=== PATIENT | female | born 1980 | race Caucasian/White ===

== ENCOUNTER → 2024-08-18 | Outpatient (CLI) | payer OTHER ==
--- NOTE | 2024-08-18 10:15 | XR ---
EXAMINATION TYPE: XR lumbar spine 2 or 3V DATE OF EXAM: 08/18/2024 10:08 AM CLINICAL INDICATION: Female, 44 years old with history of XRAY/M51.16,M54.16..LUMBAR SPINE; [facility] COMPARISON: MRI 08/26/2011 TECHNIQUE: XR lumbar spine 2 or 3V - Frontal, lateral and coned in L5-S1 lateral views of the spine. FINDINGS: No evidence of any acute osseous pathology. No evidence of loss of vertebral body height i s seen. There is normal alignment of the lumbar vertebral bodies. Scattered disc space narrowing. Mul tilevel marginal osteophyte formation throughout the visualized spine. There is facet joint arthropat hy throughout the spine. Scattered at least mild neural foraminal stenosis. Large osteophytes are see n in the right facet. No neural foraminal stenosis worse at L4-L5 and L5-S1 with at least moderate. IMPRESSION: 1. No acute fracture. 2. 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 [facility], , 08/18/2024 10:12 AM
== END | disposition home or self-care (01) ==
LOC: RADXRMAIN 09:42
PROVIDERS: ATTEND Family Medicine
CPT/HCPCS: 72100

== ENCOUNTER 2024-09-13 12:42 | Emergency (ER) | payer OTHER ==
[2024-09-13 12:55] VITALS: PULSE 71
[2024-09-13] MEDS: dexAMETHasone 4 MG TAB PO STA (13:23)
--- NOTE | 2024-09-13 13:49 | XR ---
EXAMINATION TYPE: XR chest 2V DATE OF EXAM: 09/13/2024 1:33 PM COMPARISON: None TECHNIQUE: XR chest 2V Frontal and lateral views of the chest. CLINICAL INDICATION:Female, 44 years old with history of cough; FINDINGS: Lungs/Pleura: There is no evidence of pleural effusion, focal consolidation, or pneumothorax. Pulmonary vascularity: Unremarkable. Heart/mediastinum: Cardiomediastinal silhouette is unremarkable. Musculoskeletal: No acute osseous pathology. IMPRESSION: No acute cardiopulmonary disease/process. [facility], , 09/13/2024 1:47 PM
--- NOTE | 2024-09-13 14:35 | ED ---
General Adult HPI - General Chief complaint: Upper Respiratory Infection Stated complaint: Congestion,Fever Time Seen by Provider: 09/13/24 13:10 Source: patient, RN notes reviewed, old records reviewed Mode of arrival: ambulatory Limitations: no limitations - History of Present Illness Initial comments: Patient is a 44-year-old female presents emergency department with upper respiratory symptoms. Is on day 2 or 3 of symptoms. Has positive COVID contact. Concerned she may have COVID. Patient does vape. Describes having productive cough, nasal congestion. Denies any other symptoms including denying nausea, vomiting, diarrhea. Vaccinated COVID. Presents for further evaluation at this time. - Related Data Home Medications Medication Instructions Recorded Confirmed ALPRAZolam [Xanax] 1 mg PO BID 04/10/14 04/27/14 Gabapentin [Neurontin] 600 mg PO TID 04/10/14 04/27/14 HYDROcodone/APAP 10-325MG [[place] 1 tab PO QID 04/10/14 04/27/14 10-325] buPROPion SR [Wellbutrin SR] 150 mg PO BID 04/10/14 04/27/14 Previous Rx's Medication Instructions Recorded ARIPiprazole [Abilify] 5 mg PO DAILY #30 tab 04/30/14 Albuterol Sulfate [Ventolin HFA] 2 puff INHALATION Q6H PRN #1 each 09/13/24 Allergies Allergy/AdvReac Type Severity Reaction Status Date / Time No Known Allergies Allergy Verified 09/13/24 12:54 Review of Systems ROS Statement: Those systems with pertinent positive or pertinent negative responses have been documented in the HPI. Review of Systems: CONST: Denies fever EYES: Denies blurry vision ENT: Endorses nasal congestion, cough C/V: Denies Chest pain RESP: Denies shortness of breath GI: Denies abdominal pain : Denies dysuria SKIN: Denies rash. MSK: Denies joint pain. NEURO: Denies headache ROS Other: All systems not noted in ROS Statement are negative. Past Medical History Past Medical History: No Reported History Additional Past Medical History / Comment(s): ogorophobia History of Any Multi-Drug Resistant Organisms: None Reported Past Surgical History: Adenoidectomy, Back Surgery, Tonsillectomy Additional Past Surgical History / Comment(s): pilonidal cyst. oral surgery Past Psychological History: ADD/ADHD, Anxiety, Depression Smoking Status: Vaper Past Alcohol Use History: Occasional General Exam - General Exam Comments Initial Comments: General: Appears in no acute distress. HEAD: Normal with no signs of head trauma. EYES: EOMI. ENT: Hearing grossly intact. Posterior oropharynx within acceptable limits. RESPIRATORY: No respiratory distress. No hypoxia. No respiratory distress. Clear breath sounds bilaterally. C/V: Regular rate and rhythm. S1 and S2 auscultated. ABD: Abdomen is nondistended. EXT: No obvious deformity. SKIN: No rashes or lesions observed on exposed skin. NEURO: Alert and oriented. Limitations: no limitations Course Vital Signs 09/13/24 09/13/24 12:52 13:01 Temperature 97.8 F Pulse Rate 71 Respiratory 20 18 Rate Blood Pressure 141/82 O2 Sat by Pulse 95 Oximetry Medical Decision Making - Medical Decision Making Was pt. sent in by a medical professional or institution (, PA, SALESPERSON FLYING SQUAD, urgent care, hospital, or fpc...) When possible be specific @ -No Did you speak to anyone other than the patient for history (EMS, parent, family, police, friend...)? What history was obtained from this source @ -No Did you review nursing and triage notes (agree or disagree)? Why? @ -I reviewed and agree with nursing and triage notes Were old charts reviewed (outside hosp., previous admission, EMS record, old EKG, old radiological studies, urgent care reports/EKG's, fpc records)? Report findings @ -No old charts were reviewed Differential Diagnosis (chest pain, altered mental status, abdominal pain women, abdominal pain men, vaginal bleeding, weakness, fever, dyspnea, syncope, headache, dizziness, GI bleed, back pain, seizure, CVA, palpatations, mental health, musculoskeletal)? @ -COVID, flu, RSV, pneumonia. This list is not all inclusive. EKG interpreted by me (3pts min.). @ -None done X-rays interpreted by me (1pt min.). @ -Chest x-ray reveals no obvious acute cardiopulmonary process. CT interpreted by me (1pt min.). @ -None done U/S interpreted by me (1pt. min.). @ -None done What testing was considered but not performed or refused? (CT, X-rays, U/S, labs)? Why? @ -None What meds were considered but not given or refused? Why? @ -None Did you discuss the management of the patient with other professionals (professionals i.e. , PA, SALESPERSON FLYING SQUAD, lab, RT, psych nurse, medical social consultant, ore grader, teacher, chemical instrumentation officer, adult protective caseworker)? Give summary @ -No Was smoking cessation discussed for >3mins.? @ -No Was critical care preformed (if so, how long)? @ -No Were there social determinants of health that impacted care today? How? (Homelessness, low income, unemployed, alcoholism, drug addiction, transportation, low edu. Level, literacy, decrease access to med. care, correction, rehab)? @ -No Was there de-escalation of care discussed even if they declined (Discuss DNR or withdrawal of care, Hospice)? DNR status @ -No What co-morbidities impacted this encounter? (DM, HTN, Smoking, COPD, CAD, Cancer, CVA, ARF, Chemo, Hep., AIDS, mental health diagnosis, sleep apnea, morbid obesity)? @ -None Was patient admitted / discharged? Hospital course, mention meds given and route, prescriptions, significant lab abnormalities, going to OR and other pertinent info. @ -Patient presents with URI symptoms. We will obtain viral swabs, chest x- ray. She was in agreement this plan. Empirically given a dose of Decadron. Vitals are within acceptable limits. Viral swabs negative. Chest x-ray unremarkable. Discussed with the patient. As she likely has a viral URI, does not require antibiotics at this time. She expressed understanding. Recommended [id number] medications for therapy and follow-up with her PCP. She was in agreement this plan. I will provide the patient with a prescription for albuterol inhaler. I instructed the patient to follow up with their PCP in the next 1-3 days.. I explained that the patient should return to the emergency department if they experience any worsening symptoms. Strict return precautions were discussed with the patient. The patient expressed understanding of these instructions. I answered all questions that the patient had. The patient was discharged home in good condition with their prescriptions and follow up information. Undiagnosed new problem with uncertain prognosis? @ -No Drug Therapy requiring intensive monitoring for toxicity (Heparin, Nitro, Insulin, Cardizem)? @ -No Were any procedures done? @ -No Diagnosis/symptom? @ -Viral URI Acute, or Chronic, or Acute on Chronic? @ -Acute Uncomplicated (without systemic symptoms) or Complicated (systemic symptoms)? @ -Uncomplicated Side effects of treatment? @ -No Exacerbation, Progression, or Severe Exacerbation? @ -No Poses a threat to life or bodily function? How? (Chest pain, [place], [place], pneumonia, PE, COPD, DKA, ARF, appy, cholecystitis, CVA, Diverticulitis, Homicidal, Suicidal, threat to staff... and all critical care pts) @ -Unlikely - Lab Data Lab Results 09/13/24 Range/Units 13:18 Influenza Type A (PCR) Not Detected (Not Detectd) Influenza Type B (PCR) Not Detected (Not Detectd) RSV (PCR) Not Detected (Not Detectd) SARS-CoV-2 (PCR) Not Detected (Not Detectd) Disposition Clinical Impression: Viral syndrome, URI (upper respiratory infection) Disposition: HOME SELF-CARE Condition: Good Instructions (If sedation given, give patient instructions): Upper Respiratory Infection (ED) Prescriptions: Albuterol Sulfate [Ventolin HFA] 2 puff INHALATION Q6H PRN #1 each PRN Reason: Dyspnea Is patient prescribed a controlled substance at d/c from ED?: No Referrals: Austen Bello MD [Primary Care Provider] - 1-2 days Time of Disposition: 14:30
[2024-09-13 14:42] VITALS: BP 135/80; RESP 16; TEMP 98.1
== END 2024-09-13 14:42 | disposition home or self-care (01) ==
LOC: EC 12:42
DX: J06.9 Acute upper respiratory infection, unspecified (principal); B34.9 Viral infection, unspecified; F17.290 Nicotine dependence, other tobacco product, uncomplicated
CPT/HCPCS: 87636; 71046; 99283; J8540

== ENCOUNTER 2024-11-26 16:31 | Emergency (ER) | payer OTHER ==
--- NOTE | 2024-11-26 16:37 | ED ---
ENT HPI - General Chief complaint: Dental/Oral Stated complaint: dental pain Time Seen by Provider: 11/26/24 16:36 Source: patient, RN notes reviewed, old records reviewed Mode of arrival: ambulatory Limitations: no limitations - History of Present Illness Initial comments: This is a 44-year-old female to ER with severe right rear molar right rear denta l pain swelling into the lower jaw. Severe pain with movement x 2 days. Patient has history of dental caries dental abscess with prior history of tooth extraction. No fevers no other complaints MD complaint: tooth pain -: days(s) (2) Location: tooth # (Right rear molar) Severity: severe Severity scale (1-10): 10 Quality: stabbing Consistency: constant, intermittent Worsens with: none Context- Dental: history of dental caries, poor dental care Associated Symptoms: toothache - Related Data Home Medications Medication Instructions Recorded Confirmed ALPRAZolam [Xanax] 1 mg PO BID 04/10/14 04/27/14 Gabapentin [Neurontin] 600 mg PO TID 04/10/14 04/27/14 HYDROcodone/APAP 10-325MG [[place] 1 tab PO QID 04/10/14 04/27/14 10-325] buPROPion SR [Wellbutrin SR] 150 mg PO BID 04/10/14 04/27/14 Previous Rx's Medication Instructions Recorded ARIPiprazole [Abilify] 5 mg PO DAILY #30 tab 04/30/14 Albuterol Sulfate [Ventolin HFA] 2 puff INHALATION Q6H PRN #1 each 09/13/24 Amoxic-Pot Clav 875-125Mg 1 tab PO Q12HR #20 tablet 11/26/24 [Augmentin 875-125] Allergies Allergy/AdvReac Type Severity Reaction Status Date / Time No Known Allergies Allergy Verified 11/26/24 16:34 Review of Systems ROS Statement: Those systems with pertinent positive or pertinent negative responses have been documented in the HPI. ROS Other: All systems not noted in ROS Statement are negative. Past Medical History Past Medical History: No Reported History Additional Past Medical History / Comment(s): ogorophobia History of Any Multi-Drug Resistant Organisms: None Reported Past Surgical History: Adenoidectomy, Back Surgery, Tonsillectomy Additional Past Surgical History / Comment(s): pilonidal cyst. oral surgery Past Psychological History: ADD/ADHD, Anxiety, Depression Smoking Status: Vaper Past Alcohol Use History: Occasional General Exam Limitations: no limitations General appearance: alert, in no apparent distress Head exam: Present: atraumatic, normocephalic, normal inspection Eye exam: Present: normal appearance, PERRL, EOMI, other (Patient does have fractured tooth with significant pain to touch, no abscess noted). Absent: scleral icterus, conjunctival injection, periorbital swelling ENT exam: Present: normal exam, mucous membranes moist Neck exam: Present: normal inspection. Absent: tenderness, meningismus, lymphadenopathy Respiratory exam: Present: normal lung sounds bilaterally. Absent: respiratory distress, wheezes, rales, rhonchi, stridor Cardiovascular Exam: Present: regular rate, normal rhythm, normal heart sounds. Absent: systolic murmur, diastolic murmur, rubs, gallop, clicks GI/Abdominal exam: Present: soft, normal bowel sounds. Absent: distended, tenderness, guarding, rebound, rigid Extremities exam: Present: normal inspection, full ROM, normal capillary refill. Absent: tenderness, pedal edema, joint swelling, calf tenderness Back exam: Present: normal inspection Neurological exam: Present: alert, oriented X3, CN II-XII intact Psychiatric exam: Present: normal affect, normal mood Skin exam: Present: warm, dry, intact, normal color. Absent: rash Course Vital Signs 11/26/24 11/26/24 16:32 17:36 Temperature 98.8 F 97.8 F Pulse Rate 81 71 Respiratory 18 17 Rate Blood Pressure 128/81 143/78 O2 Sat by Pulse 98 96 Oximetry - Reevaluation(s) Reevaluation #1: 11/26/24 16:40 Medical records reviewed Reevaluation #2: 11/26/24 16:54 Patient's pain is improved Reevaluation #3: 11/26/24 16:54 Patient informed of results questions answered Reevaluation #4: Was pt. sent in by a medical professional or institution (, PA, DESIGN PAINTER, urgent care, hospital, or correction...) When possible be specific @ -no Did you speak to anyone other than the patient for history (EMS, parent, family, police, friend...)? What history was obtained from this source @ -no Did you review nursing and triage notes (agree or disagree)? Why? @ -agree Are old charts reviewed (outside hosp., previous admission, EMS record, old EKG, old radiological studies, urgent care reports/EKG's, correction records)? Report findings @ -yes Differential Diagnosis (chest pain, altered mental status, abdominal pain women, abdominal pain men, vaginal bleeding, weakness, fever, dyspnea, syncope, headache, dizziness, GI bleed, back pain, seizure, CVA, palpatations, mental health, musculoskeletal)? @ -prior EKG interpreted by me (3pts min.). @ -no X-rays interpreted by me (1pt min.). @ -no CT interpreted by me (1pt min.). @ -no U/S interpreted by me (1pt. min.). @ -no What testing was considered but not performed or refused? (CT, X-rays, U/S, labs)? Why? @ -none What meds were considered but not given or refused? Why? @ -none Did you discuss the management of the patient with other professionals (professionals i.e. , PA, DESIGN PAINTER, lab, RT, psych nurse, socially responsible investment adviser, test and balance engineer, teacher, surface to air weapons officer, skilled nursing case manager)? Give summary @ -no Was smoking cessation discussed for >3mins.? @ -no Was critical care preformed (if so, how long)? @ -no Were there social determinants of health that impacted care today? How? (Homelessness, low income, unemployed, alcoholism, drug addiction, transportation, low edu. Level, literacy, decrease access to med. care, shelter, rehab)? @ -none Was there de-escalation of care discussed even if they declined (Discuss DNR or withdrawal of care, Hospice)? DNR status @ -no What co-morbidities impacted this encounter? (DM, HTN, Smoking, COPD, CAD, Cancer, CVA, ARF, Chemo, Hep., AIDS, mental health diagnosis, sleep apnea, morbid obesity)? @ -none Was patient admitted / discharged? Hospital course, mention meds given and route, prescriptions, significant lab abnormalities, going to OR and other pertinent info. @ - 44 female to ER with dental pain severe right rear molar dental infection no abscess noted. Patient is given an infraalveolar injection here in the emergency department pain control and antibiotics and can be discharged home Discharge Undiagnosed new problem with uncertain prognosis? @ -no Drug Therapy requiring intensive monitoring for toxicity (Heparin, Nitro, Insulin, Cardizem)? @ -no Were any procedures done? @ -Yes dental injection inferior alveolar Diagnosis/symptom? @ -Acute dental abscess Acute, or Chronic, or Acute on Chronic? @ -Acute Uncomplicated (without systemic symptoms) or Complicated (systemic symptoms)? @ -Complicated Side effects of treatment? @ -no Exacerbation, Progression, or Severe Exacerbation? @ -exacerbation Poses a threat to life or bodily function? How? (Chest pain, [place], [place], pneumonia, PE, COPD, DKA, ARF, appy, cholecystitis, CVA, Diverticulitis, Homicidal, Suicidal, threat to staff... and all critical care pts) @ -no Procedures - Nerve Block Consent Obtained: verbal consent Local Anesthetic Used: Lidocaine 1% Side: right Intraoral Nerve Block: inferior alveolar Procedure Successful: Yes Complications: none Patient Tolerated Procedure: well Medical Decision Making - Medical Decision Making 44 female to ER with dental pain severe right rear molar dental infection no abscess noted. Patient is given an infraalveolar injection here in the emergency department pain control and antibiotics and can be discharged home Disposition Clinical Impression: Dental caries, Dental abscess Disposition: HOME SELF-CARE Condition: Good Instructions (If sedation given, give patient instructions): Dental Abscess (ED), Toothache (ED) Prescriptions: Amoxic-Pot Clav 875-125Mg [Augmentin 875-125] 1 tab PO Q12HR #20 tablet Is patient prescribed a controlled substance at d/c from ED?: No Referrals: Austen Bello MD [Primary Care Provider] - 1-2 days Time of Disposition: 17:00
[2024-11-26] MEDS: IBUPROFEN 800 MG TAB PO STA (17:38)
[2024-11-26] MEDS: AMOXIC-POT CLAV 875-125MG 1 EACH TAB PO STA (17:38)
[2024-11-26] MEDS: traMADol 50 MG TAB PO STA (17:39)
[2024-11-26] MEDS: traMADol 50 MG STARTER PACK 3 TAB BTL PO STA (17:40)
[2024-11-26] MEDS: IBUPROFEN 600 MG STARTER PACK 4 TAB BTL PO STA (17:41)
[2024-11-26] MEDS: ACETAMINOPHEN TAB 500 MG TAB PO STA (17:42)
[2024-11-26] MEDS: AMOXIC-POT CLAV 875MG STARTER PACK 2 TAB BTL PO STA (17:42)
[2024-11-26 17:48] VITALS: BP 143/78; PULSE 71; RESP 17; TEMP 97.8
== END 2024-11-26 17:46 | disposition home or self-care (01) ==
LOC: SUPCPDRO 16:31 → EC 16:31
DX: K02.9 Dental caries, unspecified (principal); K04.7 Periapical abscess without sinus; F17.290 Nicotine dependence, other tobacco product, uncomplicated
CPT/HCPCS: 64400; 99283